=== PATIENT | female | born 1970 | race Two or more races ===

== ENCOUNTER 2024-08-14 03:19 | Emergency (ER) | payer SELFPAY ==
[2024-08-14 03:22] VITALS: BMI 37.5
[2024-08-14 03:44] VITALS: BP 139/88; PULSE 95; RESP 17; TEMP 37; O2SAT 95
== END 2024-08-14 03:58 | disposition left against medical advice (07) ==
LOC: SERX 04:44
PROVIDERS: Emergency Provider Emergency Medicine
DX: Z53.21 Procedure and treatment not carried out due to patient leaving prior to being seen by health care provider (principal)
CPT/HCPCS: 99281